=== PATIENT | female | born 2000 | race Two or more races ===

== ENCOUNTER 2024-04-06 10:56 | Emergency (ER) | payer OTHER ==
[~2024-04-06] VITALS: Ht 167.6 cm; Wt 89.8 kg
[2024-04-06 14:38] LABS: PH,URINE 7.5 (5.0-8.0); URINE APPEARANCE Clear; URINE BILIRRUBIN Negative (NEGATIVE); URINE BLOOD Negative; URINE COLOR Yellow; URINE GLUCOSE Negative (NEGATIVE); URINE KETONE Trace (NEGATIVE); URINE LEUKOCYTE Trace; URINE NITRATE Negative; URINE PROTEIN Trace (NEGATIVE)
[2024-04-06 14:39] LABS: MEAN CELL VOLUME 86.8 fL (80.00-100.00); MEAN CORPUSCULAR HEMOGLOBIN 28.3 pg (27.00-32.0); MEAN CORPUSCULAR HGB CONC 32.6 g/dl (32.0-36.0); PLATELET COUNT 308 K/uL (150-450); RED BLOOD COUNT 4.26 M/uL (4.00-6.00); RED CELL DISTRIBUTION WIDTH 13.5 % (11.5-14.5)
[2024-04-06 14:41] LABS: URINE BACTERIA 1526.2 uL (0.0-1933); URINE EPITHELIAL CELLS 62.8 uL (0.0-38.8); URINE RBC 5.4 uL (0.0-20.8); URINE WBC 30.5 uL (0.0-23.2)
[2024-04-06 14:59] LABS: URINE CAST 0.29 uL (0.0-1.40)
[2024-04-06 15:35] LABS: CREATININE SERUM 0.68 mg/dL (0.55-1.02); GFR 106.3; POTASSIUM 4.02 mEq/L (3.5-5.1)
== END 2024-04-06 18:12 | disposition home or self-care (01) ==
LOC: ER 10:59
PROVIDERS: Emergency Medicine
DX: O99.891 Other specified diseases and conditions complicating pregnancy (principal); Z3A.01 Less than 8 weeks gestation of pregnancy; R10.2 Pelvic and perineal pain